=== PATIENT | female | born 1940 | race Hispanic/Latino ===

== ENCOUNTER 2016-08-26 12:30 | Emergency (ER) | payer MEDICARE ==
[2016-08-26 13:27] LABS: Hematocrit 38.8 % (37.0-47.0); Mean Corpuscular Hemoglobin 29.8 pg (27-31); Mean Corpuscular Hgb Conc 33.5 g/dl (32-36); Mean Platelet Volume 9.6 fl (6.0-9.5); Neutrophil # 4.3 K/mm3 (1.3-6.0); Neutrophil % 61.3 % (42-75.0); Platelet Count 306 K/mm3 (150-450); Red Blood Count 4.36 M/mm3 (4.2-5.4); Red Cell Distribution Width 12.7 % (11.5-14.0); White Blood Count 7.1 K/mm3 (4.0-10.5)
[2016-08-26 13:51] LABS: ALT 19 U/L (19-67); AST 8 U/L (0-48); Albumin * 3.6 gm/dl (3.4-5.0); Alkaline Phosphatase * 91 U/L (50-170); Anion Gap 15.6 mmol/L (6.8-13.8); BUN/Creatinine Ratio 21.1 (9.0-21.6); Bilirubin, Total 0.3 mg/dL (0.0-1.1); Blood Urea Nitrogen 28 mg/dL (3-23); Ca. Corrected For Albumin 9.4 mg/dL (8.4-10.2); Calcium * 9.4 mg/dL (7.9-10.9); Chloride 102 mmol/L (97-106); Glucose * 359 mg/dL (70-110); Lipase 211 U/L (73-393); Potassium 4.6 mmol/L (3.4-4.6); Sodium 139 mmol/L (132-142); Total Protein 7.8 gm/dL (6.2-8.2); Troponin I Less than 0.017 ng/ml (0.00-0.10)
--- OUTSIDE RECORDS SUMMARY | 2016-08-26 14:05 | XMS REPORT | Continuity of Care Document ---
:1940 Author Organization [facility] ([facility]) Address [address] [place] [address] Phone [phone] Care Team Providers Name Role Phone Radha Holland Primary Care Provider [phone] Source Comments This disclosure is being made pursuant to the Care Everywhere program, applicable federal and state laws, and may not contain all informaitonavailable regarding this patient.[facility] ([facility]) Active Allergies and Adverse Reactions Allergen Noted Date Severity Reactions Comments Ciprofloxacin 04/25/2010 Rash Mold 04/25/2010 Rash Nitrofurantoin Monohyd/M-Cryst 04/25/2010 Rash Penicillins 04/25/2010 Rash Prednisone 07/14/2016 Urticaria (Hives) Current Medications Prescription Sig. Disp. Refills Start Date End Date Status MULTIVITAMINS Take by mouth daily. Active W-MINERALS/LUT (CENTRUM SILVER PO) aspirin 81 mg EC Take 81 mg by mouth Active tablet daily. CALCIUM Take 1 Tab by mouth Active CARBONATE/VITAMIN daily. D3 (CALCIUM 600 + D PO) EPINEPHrine inject 0.3 mL 1 Each 2 10/06/2010 Active (EPI-PEN) 0.3 intramuscularly once mg/0.3 mL injection when needed. syringe Indications: Allergic Reactions glucose blood test 1 Strip 3 times 100 Strip 1 06/08/2011 Active strips (ACURA TEST daily. Indications: STRIPS) Diabetes Mellitus omeprazole 20 mg Take 1 Cap by mouth 90 Cap 0 06/13/2011 Active extended release daily. Indications: capsule Gastroesophageal Reflux atorvastatin 10 mg Take 10 mg by mouth Active tablet every evening. glimepiride 4 mg Take 4 mg by mouth 2 Active tablet times daily with meals. lisinopril 30 mg Take 30 mg by mouth Active tablet daily. metFORMIN Take 1,000 mg by Active (GLUMETZA) 500 mg mouth 2 times daily. XR tablet ondansetron 4 mg Take 4 mg by mouth Active disintegrating every 6 hours as tablet needed. HYDROcodone-acetami Take 1 tablet by Active nophen 5-325 mg per mouth every 6 hours. tablet 3 day script filled 06/15/16 metroNIDAZOLE 500 Take 1 tablet (500 mg 27 tablet 0 06/22/2016 Active mg tablet total) by mouth every 8 hours. docusate 100 mg Take 1 capsule (100 60 capsule 0 06/22/2016 Active capsule mg total) by mouth 2 times daily. Active Problems Problem Noted Date Abdominal pain, epigastric 06/18/2016 Diverticulitis 06/18/2016 Chronic urticaria 07/22/2010 Overview: -Symptoms initially started in 03/2010, and likely secondary to an acute hypersensitivity reaction to ciprofloxacin. Symptoms persisted despite discontinuation of antibiotic, and lasted >6wks. -During hospitalization in 04/2010 the allergy service was consulted for further evaluation and management of urticaria. Work up revealed: 04/27/2010 C3 133 mg/dl, C4 34, CH50 >60U/ml, thyroid agnieszka xidase Ab 19.2 IU/ml (elevated), thyroglobulin Ab <1.8 IU/mL, normal TSH, EDDIE < 1:40, hep B core Ab G+M NR, hep C Ab NR, elevated ESR 28 and CRP 6. Her symptoms resolved with hydroxyzine 25mg po q6h, cetirizine 10mg po bid, and famotidine 20mg po bid. -10/08/2010: TSH 1.36, free thyroxine 1.06, thyroid peroxidase Ab elevated at 31.9 -L upper thigh skin biopsy 01/24/2011: Superficial and deep perivascular lymphocytic inflammation with admixed eosinophils. The features are consistent with a hypersensitivity reaction such as an arthropod assault.Treated with Lidex ointment. Hypertrophic obstructive cardiomyopathy 07/22/2010 Diabetes mellitus, type 2 07/22/2010 Hyperlipemia 04/30/2010 Obstructive sleep apnea 04/25/2010 Hypertension 04/25/2010 GERD (gastroesophageal reflux disease) 04/25/2010 Osteoporosis 04/25/2010 Most Recent Encounters Date Type Specialty Providers Description 08/24/2016 Office Visit Med GI/Hepatology Ace, Subj: Upcoming MD Summer Appt Reminder 08/17/2016 Telephone Med GI/Hepatology Shalonda Cohen Chief Comp: Appointment Info 08/04/2016 Telephone Med GI/Hepatology Drea Haas Chief Comp: Appointment Info 07/15/2016 Nurse Triage Med GI/Hepatology Mónica Kimbrough, Chief Comp: RN Post-op Follow-up Call 07/14/2016 [facility] Med GI/Hepatology Jess Link, Dx: Abdominal Encounter pain, epigastric 06/22/2016 Office Visit Obg Urogynecology Ajith Lanier MD Subj: Upcoming Appt Reminder 06/22/2016 [facility]: [facility] 06/22/2016 Encounter Inpatient - Adult Sistla, tanisha, epigastric MD Cisco (Primary Dx) Joshua Hanna MD Malkhasyan, Karen A, MD Immunizations Name Dates Previously Given Next Due Influenza, PF 04/15/2011 Influenza, high dose 05/07/2010 Pneumococcal, unspecified 07/17/2007 Social History Tobacco Use Types Packs/Day Years Used Date Never Smoker Smokeless Tobacco: Never Used Comments:None Alcohol Use Drinks/Week oz/Week Comments No Last Filed Vital Signs Vital Sign Reading Time Taken Blood Pressure 126/73 07/14/2016 11:22 AM COMPONENT INSPECTOR Pulse 75 06/22/2016 4:34 PM COMPONENT INSPECTOR Temperature 35.7 C (96.3 F) 07/14/2016 11:02 AM COMPONENT INSPECTOR Respiratory Rate 20 07/14/2016 11:22 AM COMPONENT INSPECTOR Height 1.549 m (5' 0.98") 06/22/2016 4:34 PM COMPONENT INSPECTOR Weight 71 kg (156 lb 8.4 oz) 07/14/2016 9:36 AM COMPONENT INSPECTOR Body Mass Index 29.59 07/14/2016 9:36 AM COMPONENT INSPECTOR Oxygen Saturation 95% 07/14/2016 11:22 AM COMPONENT INSPECTOR Plan of Care Date Type Specialty Providers Description 09/06/2016 Appointment Med GI/Hepatology Ace, Subj: Appointment MD Summer Scheduled [address] [place] [address] [phone] (Fax) Health Maintenance Due Date Last Done Comments Hepatitis B Vaccine (1 of 3 - 1940 Primary Series) Tdap Vaccine 09/25/1950 DIABETIC: Microalbumin 09/25/1957 Td Vaccine 09/25/1957 Colonoscopy 09/25/1989 Zoster Vaccine 1999 Osteoporosis Screening (DXA 09/25/2004 Bone Density) Pneumococcal Vaccine (1 of 2 09/25/2004 - PCV13) DIABETIC: Foot Exam 12/28/2010 DIABETIC: Retinal Eye Exam 12/28/2010 Mammogram 06/08/2011 06/08/2010 DIABETIC: Hemoglobin A1C 06/15/2011 12/14/2010, Additional history exists 07/30/2010, 05/13/2010 DIABETIC: Cholesterol 12/15/2011 12/14/2010, 07/30/2010 Diabetic: Hdl 12/15/2011 12/14/2010, 07/30/2010 Diabetic: Ldl 12/15/2011 12/14/2010, 07/30/2010 DIABETIC: Triglycerides 12/15/2011 12/14/2010, 07/30/2010 Influenza Vaccine: Seasonal 02/15/2016 04/15/2011, (#1) 05/07/2010 Results from Last 3 Months ENDOSCOPIC ULTRASOUND UPPER (07/14/2016 11:26 AM) Jess Ng MD 07/14/2016 11:26 AM ENDOSCOPIC ULTRASOUND UPPER Procedure Date: 07/14/2016 Patient Name: Rosario Johnson Attending MD: Jess Link MD Procedure: Upper EUS Indications:Pancreatic cyst on MRI Providers:Jess Link MD (Doctor), Mohamud Bond MD (Fellow) Complications: No immediate complications Procedure: After obtaining informed consent, the endoscope was passed under direct vision.Throughout the procedure, the patient's blood pressure, pulse, and oxygen saturations were monitored continuously.The [id number] linear echoendoscope was introduced through the mouth, and advanced to the third part of duodenum.The upper EUS was accomplished without difficulty. The patient tolerated the procedure well. Findings: A microcystic/multicystic lesion (honeycomb appearance) was identified in the pancreatic body.The lesion measured 21 mm by 17 mm in maximal cross-sectional diameter. There was no associated solid mass. Fatty infiltration of the pancreas - ortherwise normal pancreas. Impression: - A 21 by 17 mm cystic lesion was seen in the pancreatic body. Tissue has not been obtained.However, the endosonographic appearance is highly suspicious for a serous cystadenoma. Thus, the risk of malignant transformation is neclegtibly low. Recommedation Consider surveillance with cross-sectional imaging in one year. Teaching statement: I, Dr. Jess Link, was present for the entire procedure. Jess Link MD Clinical Professor Department of Internal Medicine Division of Gastroenterology-Hepatology Post Sedation Evaluation Blood pressure: 126/73 (07/14/16 11:22 AM) Pulse: 69 (07/14/16 10:59 AM) 69 (07/14/16 11:22 AM) Temperature: 96.3 (07/14/16 11:02 AM) Temp. Source: Tympanic Respiratory rate: 19 (07/14/16 10:59 AM) SpO2: 95 (07/14/16 11:22 AM) Pain: None Nausea and Vomiting: No Level of Consciousness: Awake and alert Airway Patency: Patent I have personally evaluated the patient prior to discharge. Jess Link MD BLOOD GLUCOSE, BEDSIDE (06/22/2016 1:48 PM)Only the most recent of13 resultswithin the time period is included. Component Value Range Glucose, Accu-Chek 103(H) 65-99 mg/dL Specimen Blood, capillary BASIC METABOLIC PANEL W/ CALCIUM (CHEM 8) (06/22/2016 11:47 AM)Only the most recent of3 resultswithin the time period is included. Component Value Range Sodium 141 135-145 mEq/L Potassium 3.5 3.5-5.0 mEq/L Chloride 105 95-107 mEq/L CO2 22 22-29 mEq/L Anion Gap 14 8-18 mEq/L BUN 13 10-20 mg/dL Creatinine 1.1(H)Comment: 0.5-1.0 mg/dL Creatinine switched to enzymatic method on 11/23/2010.GFR equation switched to IDMS-traceable MDRD equation on 11/23/2010. Calculated GFR values are not valid in clinical settings where serum creatinine is changing. Glucose 149(H)Comment: 65-99 mg/dL The Expert Committee on the Diagnosis and Classification of Diabetes has defined impaired fasting glucose as greater than or equal to 100 mg/dL but less than 126 mg/dL.(Diabetes Care 28 (Suppl 1)S41,2005) Calcium 8.4(L) 8.5-10.5 mg/dL Calculated GFR 48(L) >60 mL/min/1.73 m2 Specimen Blood CBC (COMPLETE BLOOD COUNT) (06/22/2016 11:47 AM)Only the most recent of3 resultswithin the time period is included. Component Value Range WBC Count 7.3 3.7-10.5 K/MM3 RBC Count 4.12 4.00-5.20 M/MM3 Hemoglobin 11.7(L) 11.9-15.5 g/dL Hematocrit 36 35-47 % MCV (Mean Corpuscular Volume) 88 82-99 FL MCH (Mean Corpuscular Hemoglobin) 28 25-35 PG MCHC (Mean Corpuscular Hemoglobin Concentration) 32 32-36 % Platelet Count 291 150-400 K/MM3 MPV (Mean Platelet Volume) 9.6 9.4-12.3 FL RBC Dist Width-STD 40.8 36.4-46.3 FL RBC Distrib Width 12.8 9.0-14.5 % Nucleated RBC 0 /100 WBC Specimen Whole Blood ENDOSCOPY UPPER (06/22/2016 11:28 AM) Sin Davis MD 06/22/2016 11:28 AM ENDOSCOPY UPPER Esophagogastroduodenoscopy (EGD) procedure note Procedure Date: 06/22/2016 Procedure: Esophagogastroduodenoscopy (EGD) Indications: N/V Attending Staff: Clarita Venegas MD Fellow: Presley Marinelli D.O. Referring Physician: Radha Holland DO MD Consent: The risks, benefits, indications, potential complications, and alternatives were explained to the patient and informed consent obtained. Procedural Medications: Oxygen 2L by nasal cannulae, oral lidocaine, Versed 3 mg IV, fentanyl 50 mcg IV Description of Procedure: Time out was performed.The patient was placed in the left lateral decubitus position. The patient was monitored continuously withpulse oximetry, blood pressure monitoring, and direct observations. The oropharynx was clear.A bite block was placed.Lidocaine 4% oropharyngeal spray was given.Adequate IV sedation was administered as above. The Olympus gastroscope [id number] was inserted into the mouth and advanced under direct vision to third portion of the duodenum.A careful inspection was made as the gastroscope was withdrawn, including a retroflexed view of the proximal stomach; findings and interventions are described below. Photographs: Appropriate photodocumentation was obtained. Biopsy/Specimens: none Findings: Esophagus: Z-line at 34 cm and regular.No varices, no esophagitis. Stomach: insufflated normally, normal rugal folds.No abnormalities noted, including retroflexed views of the fundus and cardia.Pylorus patent. There was an inflammatory polyp in the pyloris ~4 mm. Duodenum was explored to D3 without abnormalities. Complications: The patient did tolerate the procedure well and no complications were noted. Impression: 1) No significant abnormalities found to explain patient symptoms 2) A small "Inflammatory-type looking" polyp in the antrum that was not removed. Plan: 1) Please see my last consult note. Symptomatic management of patients symptoms with discussed diet. Ok to advance diet as indicated in note. Patient has follow up appointment. We will not be doing any further diagnostic management unless clinical picture changes. We will sign off for now and please have patient follow up with already scheduled appointment. Her breath testing was ordered as well. Make sure she sees a store administrative assistant prior to discharge. Signature Presley Marinelli D.O. Fellow [facility] Department of Gastroenterology and Hepatology Teaching Statement: Dr. Morin present for the entire procedure. Sin Simmons MD FECAL OCCULT BLOOD - GUAIAC (06/21/2016 11:00 PM) Component Value Range Fecal Occult Blood Screen Negative Negative Card Type Hemoccult Specimen Stool C. DIFFICILE TOXIN SCREEN (06/21/2016 11:00 PM) Component Value Range C. Difficle GDH Negative Negative C. Difficile Toxin NegativeComment: Negative Negative for the presence of C. difficile and C. difficile toxin. Specimen Stool NUC GASTRIC EMPTYING-SOLID ([id number]) (06/21/2016 12:55 PM) Impressions Impression: Normal solid phase gastric emptying. Narrative Procedure: NUC GASTRIC EMPTYING-SOLID ([id number]) Indication: Nausea/vomiting. Radiopharmaceutical: Technetium-99m (Tc-99m) labeled sulfur colloid 1.1 mCi PO. Technique: Standardized meal was partly ingested, consisting of one of two scrambled eggs containing radiopharmaceutical, 60% of one slice of buttered toast, and 30 mL of 120 ml water over the course of 8 min. Anterior and posterior images of the abdomen were obtained at multiple time points over the course of 2 hrs. Regions of interest were drawn around the stomach to quantify clearance of activity over time by geometric mean analysis. Findings: Initial images show activity within the stomach. Subsequent images show gradual transit of activity into the small bowel activity over the acquisition interval. Based on the time-activity curve, the gastric emptying half-time is 80 min (normally 45-120 min) with 1% activity remaining in the stomach at 2 hrs (normally 60% or less) Procedure Note Jaquan, Incoming Imaging Results - MonJun 22, 2016 9:04 AM COMPONENT INSPECTOR Procedure: NUC GASTRIC EMPTYING-SOLID ([id number]) Indication: Nausea/vomiting. Radiopharmaceutical: Technetium-99m (Tc-99m) labeled sulfur colloid 1.1 mCi PO. Technique: Standardized meal was partly ingested, consisting of one of two scrambled eggs containing radiopharmaceutical, 60% of one slice of buttered toast, and 30 mL of 120 ml water over the course of 8 min. Anterior and posterior images of the abdomen were obtained at multiple time points over the course of 2 hrs. Regions of interest were drawn around the stomach to quantify clearance of activity over time by geometric mean analysis. Findings: Initial images show activity within the stomach. Subsequent images show gradual transit of activity into the small bowel activity over the acquisition interval. Based on the time-activity curve, the gastric emptying half-time is 80 min (normally 45-120 min) with 1% activity remaining in the stomach at 2 hrs (normally 60% or less) IMPRESSION Impression: Normal solid phase gastric emptying. DIFFERENTIAL (06/21/2016 6:05 AM)Only the most recent of2 resultswithin the time period is included. Component Value Range % Neutrophils-Auto Diff 42.1 % Neutrophils-Auto Diff 2120(L) 8594-4197 /MM3 % Lymphocytes-Auto Diff 46.6 % Lymphocytes-Auto Diff 2350 875-3300 /MM3 % Monocytes-Auto Diff 9.5 % Monocytes-Auto Diff 480 130-860 /MM3 % Eosinophils-Auto Diff 1.2 % Eosinophils-Auto Diff 60 40-390 /MM3 % Basophils 0.4 % Basophils-Auto Diff 20 10-136 /MM3 % Immature Granulocytes-Auto Diff 0.2 % Immature Granulocytes-Auto Diff 10 /MM3 Specimen Whole Blood Narrative This sample was misidentified by the patient care area. Nandini Rodriguez was notified @ 0617 06/21/16. Clarita Venegas MD, CLP# [id number] authorized Nandini Rodriguez to reconcile the error and accept responsibility for the identity of the sample. CBC (COMPLETE BLOOD COUNT) (06/21/2016 6:05 AM)Only the most recent of2 resultswithin the time period is included. Component Value Range WBC Count 5.0 3.7-10.5 K/MM3 RBC Count 4.04 4.00-5.20 M/MM3 Hemoglobin 11.6(L) 11.9-15.5 g/dL Hematocrit 36 35-47 % MCV (Mean Corpuscular Volume) 88 82-99 FL MCH (Mean Corpuscular Hemoglobin) 29 25-35 PG MCHC (Mean Corpuscular Hemoglobin Concentration) 33 32-36 % Platelet Count 288 150-400 K/MM3 MPV (Mean Platelet Volume) 9.8 9.4-12.3 FL RBC Dist Width-STD 41.3 36.4-46.3 FL RBC Distrib Width 12.8 9.0-14.5 % Nucleated RBC 0 /100 WBC Specimen Whole Blood Narrative This sample was misidentified by the patient care area. Nandini Rodriguez was notified @ 0632 06/21/16. Clarita Venegas MD, CLP# [id number] authorized Nandini Rodriguez to reconcile the error and accept responsibility for the identity of the sample. CBC WITH DIFFERENTIAL (06/21/2016 6:05 AM)Only the most recent of2 resultswithin the time period is included. Specimen Whole Blood Narrative The following orders were created for panel order CBC WITH DIFFERENTIAL. Procedure Abnormality Status --------- ------ CBC (COMPLETE BLOOD COUNT)[[id number]] Abnormal Edited Result - FINAL DIFFERENTIAL[[id number]] AbnormalEdited Result - FINAL Please view results for these tests on the individual orders. URINE CULTURE, REFLEXED (06/20/2016 2:20 PM) Component Value Range Quantitative Culture No growth at 07/999 dilution Specimen Culture - Urine, Midstream clean catch MICROSCOPIC URINALYSIS (06/20/2016 2:19 PM) Component Value Range White Blood Cells, Urine <1 0-5 /HPF Red Blood Cells, Urine <1 0-2 /HPF Squamous Epithelial Cells, Urine 20(H) <=10 /LPF Specimen Urine URINALYSIS WITH REFLEX CULTURE (06/20/2016 2:19 PM) Component Value Range Color, Urine Yellow Straw, Pale Yellow, Yellow, Clear, None Clarity, Urine Clear Clear pH, Urine 6.0 <9.0 Spec [place], Urine 1.015 1.000-1.030 Glucose, Urine Negative Negative Blood, Urine Negative Negative Ketones, Urine Negative Negative Protein, Urine 1+(A) Negative Urobilinogen, Urine Normal Normal Bilirubin, Urine Negative Negative Leukocyte Esterase, Urine 1+(A) Negative Nitrite, Urine Negative Negative Specimen Urine URINALYSIS WITH REFLEXED CULTURE AND MICROSCOPIC EXAM (06/20/2016 2:19 PM) Specimen Culture - Urine, Midstream clean catch Narrative The following orders were created for panel order URINALYSIS WITH REFLEXED CULTURE AND MICROSCOPIC EXAM. Procedure Abnormality Status --------- ------ URINALYSIS WITH REFLEX C...[[id number]]AbnormalFinal result MICROSCOPIC URINALYSIS[[id number]] Abnormal Final result URINE CULTURE, REFLEXED[[id number]]Normal Final result Please view results for these tests on the individual orders. C-REACTIVE PROTEIN (06/20/2016 12:14 PM) Component Value Range CRP (C-Reactive Protein) 0.7(H) <=0.5 mg/dL Specimen Blood ERYTHROCYTE SEDIMENTATION RATE (06/20/2016 12:14 PM) Component Value Range ESR (Erythrocyte Sedimentation Rate) 22(H) 0-20 mm/Hr Specimen Whole Blood MRI MRCP AND MRI ABD W/WO CONTRAST ([id number]) (06/19/2016 3:24 PM) Impressions Impression: 1. The lesion seen on CT posterior to junction of pancreatic body and tail is cystic and septated, favor serous cystadenoma, less likely side branch IPMN. This can be correlated with EUS and aspiration. 2. A smaller cystic lesion at junction of pancreatic body and tail appears to communicate with main pancreatic duct, favor sidebranch IPMN. 3. 2 small hemorrhagic cysts in the left kidney. 4. Mild bile duct dilatation without distal obstructing stones or masses, could be due to prior cholecystectomy. Narrative Procedure: MRI MRCP AND MRI ABD W/WO CONTRAST ([id number]) Clinical Indication: Abdominal pain, pancreatic mass. Technique: MRI of the abdomen with attention to the pancreas and MRCP were performed on a 1.5 Ashley scanner using a surface multicoil. Imaging consisted of 3 plane TrueFISP localizer, coronal HASTE T2 localizer, axial T1 FLASH in- and [id number], axial T2 fat-sat CHERISE, axial T2* GRE, axial and coronal fat-sat T2 HASTE 2D MRCP, radial thick slab heavy T2 MRCP, coronal T2 3D SPACE MRCP, axial diffusion weighted imaging, axial thin slice fat-sat T1 FLASH, and pre-contrast and multiphase post-contrast axial fat-sat T1 3D VIBE. Imaging was performed before and after administration of IV Gadavist. 8 ml of IV contrast was administered. Comparison:External CT dated 06/15/2016. Findings: Lower chest: Normal Liver: Normal size at 16.7 cm craniocaudal. Bile ducts: Extrahepatic bile ducts are mildly dilated to maximum diameter of 10 mm. Minimal dilatation of central intrahepatic bile ducts. No distal obstructing stones or masses. Gallbladder: Surgically absent. Low insertion of cystic duct remnant on common bile duct. Pancreas: Fatty atrophy of pancreas, especially neck and head. 2.3 x 1.9 x 1.9 cm lobulated cystic lesion posterior and superior to junction of pancreatic body and tail. The lesion has multiple thin, weakly enhancing internal septations and may have a central scar. The lesion does not restrict diffusion and does not definitely communicate with the main pancreatic duct. Anterior and inferior to this lesion is an 8 mm cystic lesion which appears to communicate with the main pancreatic duct. Main pancreatic duct is nondilated. Spleen: Normal Adrenal glands: Normal Kidneys: 6 mm hemorrhagic cyst in posterior midpole of left kidney. 11 mm hemorrhagic cyst in anterior midpole of left kidney. Ureters: Normal Aorta: Normal Retroperitoneum: No lymphadenopathy. Peritoneum: No ascites. Mesentery: Normal Stomach: Not distended. Bowel: Not distended. Abdominal wall: Normal. Bones: Normal. Procedure Note Jaquan, Incoming Imaging Results - [place] Jun 19, 2016 8:40 PM COMPONENT INSPECTOR Procedure: MRI MRCP AND MRI ABD W/WO CONTRAST ([id number]) Clinical Indication: Abdominal pain, pancreatic mass. Technique: MRI of the abdomen with attention to the pancreas and MRCP were performed on a 1.5 Ashley scanner using a surface multicoil. Imaging consisted of 3 plane TrueFISP localizer, coronal HASTE T2 localizer, axial T1 FLASH in- and [id number], axial T2 fat-sat CHERISE, axial T2* GRE, axial and coronal fat-sat T2 HASTE 2D MRCP, radial thick slab heavy T2 MRCP, coronal T2 3D SPACE MRCP, axial diffusion weighted imaging, axial thin slice fat-sat T1 FLASH, and pre-contrast and multiphase post-contrast axial fat-sat T1 3D VIBE. Imaging was performed before and after administration of IV Gadavist. 8 ml of IV contrast was administered. Comparison: External CT dated 06/15/2016. Findings: Lower chest: Normal Liver: Normal size at 16.7 cm craniocaudal. Bile ducts: Extrahepatic bile ducts are mildly dilated to maximum diameter of 10 mm. Minimal dilatation of central intrahepatic bile ducts. No distal obstructing stones or masses. Gallbladder: Surgically absent. Low insertion of cystic duct remnant on common bile duct. Pancreas: Fatty atrophy of pancreas, especially neck and head. 2.3 x 1.9 x 1.9 cm lobulated cystic lesion posterior and superior to junction of pancreatic body and tail. The lesion has multiple thin, weakly enhancing internal septations and may have a central scar. The lesion does not restrict diffusion and does not definitely communicate with the main pancreatic duct. Anterior and inferior to this lesion is an 8 mm cystic lesion which appears to communicate with the main pancreatic duct. Main pancreatic duct is nondilated. Spleen: Normal Adrenal glands: Normal Kidneys: 6 mm hemorrhagic cyst in posterior midpole of left kidney. 11 mm hemorrhagic cyst in anterior midpole of left kidney. Ureters: Normal Aorta: Normal Retroperitoneum: No lymphadenopathy. Peritoneum: No ascites. Mesentery: Normal Stomach: Not distended. Bowel: Not distended. Abdominal wall: Normal. Bones: Normal. IMPRESSION Impression: 1. The lesion seen on CT posterior to junction of pancreatic body and tail is cystic and septated, favor serous cystadenoma, less likely side branch IPMN. This can be correlated with EUS and aspiration. 2. A smaller cystic lesion at junction of pancreatic body and tail appears to communicate with main pancreatic duct, favor sidebranch IPMN. 3. 2 small hemorrhagic cysts in the left kidney. 4. Mild bile duct dilatation without distal obstructing stones or masses, could be due to prior cholecystectomy. EXTERNAL CT-STORE& INTERPRET (06/19/2016 6:20 AM) Impressions Impression: 1. Colonic diverticulosis. Uncomplicated sigmoid diverticulitis. 2. Enlarging mass posterior to pancreatic body/tail, concerning for neoplasm. No pancreatic ductal dilatation. Consider endoscopic ultrasound with biopsy or pancreatic protocol MRI or CT for further evaluation. 3. Mild extrahepatic bile duct dilatation, could be due to prior cholecystectomy. 4. Small hypodense lesion at anterior midpole of left kidney, not a simple cyst, could be a hemorrhagic or proteinaceous cyst. Solid neoplasm is less likely due to mild decrease in size over 5 years. Consider ultrasound for further evaluation. These findings are known to the clinical team at the time of this dictation. This final report is in agreement with the critical and emergent preliminary findings reported by the executive vice president business development contracts paralegal. Narrative Outside film interpretation requested. Patient name: Rosario Johnson. Exam was performed at 2200 hours on 06/15/2016 at [facility]. 220 images are provided and interpreted on the in-house PACS. Procedure: CT exam of the abdomen and pelvis with IV contrast. Technique: Exam consists of axial venous phase abdomen and axial delayed phase abdomen and pelvis with coronal reformats. Clinical Indication: Abdominal pain, persistent. ?Pancreatic mass seen on imaging per patient report. Additional history per Epic: DM2, recurrent diverticulitis, HOCM, status post cholecystectomy, vaginal hysterectomy, cystocele repair/sling operation. Comparison: CT dated 03/03/2011. Findings: Lower chest: The visualized lung bases are clear. Fatty interatrial septum. Liver: Normal Bile ducts: Mildly prominent extrahepatic bile ducts measure up to 10 mm in diameter; no distal obstructing stone or mass. Gallbladder: Surgically absent Pancreas: Moderate to severe fatty atrophy, most pronounced in the neck and head. There is a round 2.1 cm mass posterior to the junction of pancreatic body and tail (3-53, 6-48). Lesion density is 57 Hounsfield units on the venous phase and 37 Hounsfield units on the delayed phase. The lesion was probably present on the prior study, when measured 1.4 cm. No pancreatic ductal dilatation. The mass is separate from the left adrenal gland. Spleen: Normal Adrenal glands: Normal Kidneys: 1 cm hypodense lesion in anterior midpole of left kidney, not a simple cyst. Lesion has decreased in size from 1.3 cm previously. Otherwise, kidneys are normal. Ureters: Normal Bladder: Normal Aorta: Scattered calcifications, nonaneurysmal Retroperitoneum: No lymphadenopathy. Peritoneum: No ascites. No pneumoperitoneum. Mesentery: Normal Stomach: Not distended. Small bowel: Not distended. Colon: Not distended. There is colonic diverticulosis, most pronounced at sigmoid colon. Wall thickening is noted at mid sigmoid colon with pericolonic fat stranding suggestive of diverticulitis. No focal collection to suggest abscesses or extraluminal air. Appendix: Normal. Extraperitoneal pelvis: No lymphadenopathy. Uterus: Surgically absent Ovaries: No adnexal mass Abdominal wall: Normal Bones: Limited evaluation due to lack of sagittal reformats. There are degenerative changes in spine with dextroconvex lumbar curvature. No obvious acute fracture or destructive bony lesion. Procedure Note Jaquan, Incoming Imaging Results - Sun Jun 19, 2016 11:33 AM COMPONENT INSPECTOR Outside film interpretation requested. Patient name: Rosario Johnson. Exam was performed at 2200 hours on 06/15/2016 at [facility]. 220 images are provided and interpreted on the in-house PACS. Procedure: CT exam of the abdomen and pelvis with IV contrast. Technique: Exam consists of axial venous phase abdomen and axial delayed phase abdomen and pelvis with coronal reformats. Clinical Indication: Abdominal pain, persistent. ?Pancreatic mass seen on imaging per patient report. Additional history per Epic: DM2, recurrent diverticulitis, HOCM, status post cholecystectomy, vaginal hysterectomy, cystocele repair/sling operation. Comparison: CT dated 03/03/2011. Findings: Lower chest: The visualized lung bases are clear. Fatty interatrial septum. Liver: Normal Bile ducts: Mildly prominent extrahepatic bile ducts measure up to 10 mm in diameter; no distal obstructing stone or mass. Gallbladder: Surgically absent Pancreas: Moderate to severe fatty atrophy, most pronounced in the neck and head. There is a round 2.1 cm mass posterior to the junction of pancreatic body and tail (3-53, 6-48). Lesion density is 57 Hounsfield units on the venous phase and 37 Hounsfield units on the delayed phase. The lesion was probably present on the prior study, when measured 1.4 cm. No pancreatic ductal dilatation. The mass is separate from the left adrenal gland. Spleen: Normal Adrenal glands: Normal Kidneys: 1 cm hypodense lesion in anterior midpole of left kidney, not a simple cyst. Lesion has decreased in size from 1.3 cm previously. Otherwise, kidneys are normal. Ureters: Normal Bladder: Normal Aorta: Scattered calcifications, nonaneurysmal Retroperitoneum: No lymphadenopathy. Peritoneum: No ascites. No pneumoperitoneum. Mesentery: Normal Stomach: Not distended. Small bowel: Not distended. Colon: Not distended. There is colonic diverticulosis, most pronounced at sigmoid colon. Wall thickening is noted at mid sigmoid colon with pericolonic fat stranding suggestive of diverticulitis. No focal collection to suggest abscesses or extraluminal air. Appendix: Normal. Extraperitoneal pelvis: No lymphadenopathy. Uterus: Surgically absent Ovaries: No adnexal mass Abdominal wall: Normal Bones: Limited evaluation due to lack of sagittal reformats. There are degenerative changes in spine with dextroconvex lumbar curvature. No obvious acute fracture or destructive bony lesion. IMPRESSION Impression: 1. Colonic diverticulosis. Uncomplicated sigmoid diverticulitis. 2. Enlarging mass posterior to pancreatic body/tail, concerning for neoplasm. No pancreatic ductal dilatation. Consider endoscopic ultrasound with biopsy or pancreatic protocol MRI or CT for further evaluation. 3. Mild extrahepatic bile duct dilatation, could be due to prior cholecystectomy. 4. Small hypodense lesion at anterior midpole of left kidney, not a simple cyst, could be a hemorrhagic or proteinaceous cyst. Solid neoplasm is less likely due to mild decrease in size over 5 years. Consider ultrasound for further evaluation. These findings are known to the clinical team at the time of this dictation. This final report is in agreement with the critical and emergent preliminary findings reported by the executive vice president business development contracts paralegal. PT/INR (PROTHROMBIN TIME/INR) VENOUS (06/19/2016 5:14 AM) Component Value Range PT (Prothrombin Time) 11 9-12 secs INR 1.0 <4.0 Specimen Blood CHEM 7 PANEL (06/19/2016 5:14 AM) Component Value Range Sodium 138 135-145 mEq/L Chloride 102 95-107 mEq/L Potassium 4.3 3.5-5.0 mEq/L CO2 22 22-29 mEq/L BUN 26(H) 10-20 mg/dL Creatinine 1.2(H)Comment: 0.5-1.0 mg/dL Creatinine switched to enzymatic method on 11/23/2010.GFR equation switched to IDMS-traceable MDRD equation on 11/23/2010. Calculated GFR values are not valid in clinical settings where serum creatinine is changing. Glucose 205(H)Comment: 65-99 mg/dL The Expert Committee on the Diagnosis and Classification of Diabetes has defined impaired fasting glucose as greater than or equal to 100 mg/dL but less than 126 mg/dL.(Diabetes Care 28 (Suppl 1)S41,2005) Anion Gap 14 8-18 mEq/L Calculated GFR 44(L) >60 mL/min/1.73 m2 Specimen Blood LIPASE (06/18/2016 4:47 PM) Component Value Range Lipase 40 13-60 U/L Specimen Blood HEPATIC FUNCTION PANEL (06/18/2016 4:47 PM) Component Value Range Albumin 3.6 3.4-4.8 g/dL ALP 87 35-104 U/L Bilirubin Total 0.2 <=1.2 mg/dL Bilirubin, Direct <0.2 0.0-0.2 mg/dL AST 14 0-32 U/L ALT 17 0-33 U/L Total Protein 6.9 6.0-8.0 g/dL Specimen Blood
[2016-08-26 14:18] VITALS: BP 137/72
[2016-08-26 15:36] LABS: Urine Bilirubin Negative (NEGATIVE); Urine Ketone Negative (NEGATIVE); Urine Nitrite Negative (NEGATIVE); Urine Protein 100 mg/dL (NEGATIVE); Urine Specific Gravity >=1.030 SP.GR. (1.005-1.010); Urine Urobilinogen Normal (NORMAL)
[2016-08-26 15:46] LABS: Urine Appearance Slightly Cloudy; Urine Blood 10 /ul (NEGATIVE); Urine Color Yellow
[2016-08-26 15:47] LABS: Urine RBC TRACE /hpf (0-5); Urine WBC None Seen /hpf (0-5)
[2016-08-26 15:48] LABS: Urine Bacteria TRACE
--- NOTE | 2016-08-26 16:00 | ERNOTE ---
Medical Problem HPI - Narrative Date of Service: 08/26/16 - General Chief Complaint: Diabetes Related Problem Time Seen by Provider: 08/26/16 12:59 Source: patient Exam Limitations: no limitations - Immun/Allergies/Home Medications Immunizations: IMMUNIZATION HX Immunizations Up to Date Yes History of Influenza Vaccine No Hx Pneumococcal Vaccination Yes Allergies/Adverse Reactions: Allergies ciprofloxacin [From Cipro] Allergy (Verified 08/26/16 13:14) Vomiting ciprofloxacin HCl [From Cipro] Allergy (Verified 08/26/16 13:14) Vomiting mold Allergy (Verified 08/26/16 13:14) Anaphylaxis nitrofurantoin [From Macrobid] Allergy (Verified 08/26/16 13:14) Other nitrofurantoin macrocrystalline [From Macrobid] Allergy (Verified 08/26/16 13:14 ) Other Penicillins Allergy (Verified 08/26/16 13:14) Hives prednisone Allergy (Verified 08/26/16 13:14) Swelling (Other) Home Medications: HOME MEDICATIONS Aspirin [Aspirin EC] 81 mg PO DAILY 08/26/16 [Last Taken Unknown] Fluticasone Propionate [Flonase] 1 spray NS DAILY 08/26/16 [Last Taken Unknown] Hydrocodone/Acetaminophen [[place] 5-325 Tablet] 1 each PO HS 08/26/16 [Last Taken Unknown] Lisinopril [Zestril] 10 mg PO DAILY 08/26/16 [Last Taken Unknown] Lisinopril [Zestril] 20 mg PO DAILY 08/26/16 [Last Taken Unknown] Loratadine [Claritin] 10 mg PO DAILY 08/26/16 [Last Taken Unknown] Metformin HCl [Metformin HCl ER] 500 mg PO BID 08/26/16 [Last Taken Unknown] Multivitamin [One Daily Essential] 1 each PO DAILY 08/26/16 [Last Taken Unknown] Omeprazole 20 mg PO DAILY 08/26/16 [Last Taken Unknown] - History of Present History Narrative: Patient presents because "my blood sugar is high". She has a Hx of DM. She takes metformin. Her BS has been reading in the 300 range. She states with her BS high she is urinating more frequently and is concerned about UTI. She relates she gets frequent UTIs. She states he vision may be somewhat blurry at times. No CP or SOB. She gets occasional nausea but no abdominal pain. No acute N/T/W. Denies other Sx. Review of Systems - Review of Systems Constitutional: Absent: fever Respiratory: Absent: shortness of breath Cardiology: Absent: chest pain Gastrointestinal/Abdominal: Present: See HPI Genitourinary: Present: See HPI Skin: Absent: rash Endocrine: Present: See HPI - Patient's Past Medical History Patient History - Medical: Diabetes Type 2, Osteoarthritis, Osteoporosis, UTI'S , Other Patient History - Cardiac/Respiratory: Cardiomyopathy, Hypertension Patient History - Cancer: No Hx of Cancer Patient History - Surgical Procedures: Cholecystectomy, Hysterectomy Patient History - Other: None LMP (females 10-50): Menopausal - Social History Living Situations: home Abuse History: No History of abuse Psych History: No pertinent hx Smoking Status: Never smoker Alcohol Use: none Drug Use: none - Immunizations Immunizations Up to Date: Yes Hx Pneumococcal Vaccination: Yes History of Influenza Vaccine: No Physical Exam - Physical Exam General Appearance: Present: alert, no apparent distress, other - Sitting on the edge of the bed, no distress, non-toxic, well hydrated. Eye Exam: Normal inspection: bilateral, PERRL: bilateral Ears, Nose, Throat: Present: normal ENT inspection. Absent: dry mucous membranes Neck: Present: normal inspection Respiratory: Present: no respiratory distress, normal breath sounds, no accessory muscle use, lungs clear Cardiovascular/Chest: Present: regular rate, rhythm Gastrointestinal/Abdominal: Present: normal bowel sounds, nontender, soft, no organomegaly. Absent: tenderness Back Exam: Present: normal range of motion Extremity Exam: Present: normal inspection Neurological Exam: Present: alert, normal mood/affect, no motor/sensory deficits. Absent: facial droop, motor weakness Skin Exam: Absent: skin rash ED Progress - Results and Orders Patient's Lab Results:: I have reviewed the patient's lab results. - Vital Signs Patient's Vital Signs:: I have reviewed the patient's vital signs. Vital Signs: Vital Signs 08/26/16 08/26/16 12:45 14:17 Temperature 36.5 C Pulse Rate 95 90 Respiratory 16 16 Rate Blood Pressure 142/83 137/72 O2 Sat by Pulse 96 94 Oximetry - EKG EKG read: Interp. by me EKG Comments: Sinus tach rate 102. No evidence of acute infarct or ischemic pattern. - Progress/Reassessment Chief Complaint: Diabetes Related Problem Progress Note-Subjective: 08/26/16 15:[address] Holland who recommended increasing metformin to 1000 BID. SHe called this in. No DKA or HONKS. Stable, non-toxic, no distress, well hydrated. She is wishing to go home. No acute life threat found. No UTI. I discussed warning signs and reasons to return as well as the need for close f/u. \\ Departure - Departure Clinical Impression: Hyperglycemia Disposition: Home self-care Condition: Stable Instructions: Hyperglycemia, [id number] Additional Instructions: Please go to the pharmacy. Dr Holland has called in a new dose of Metformin for you. Take and record your blood sugars twice a day for the next [address] Holland Monday for an appointment. Return for pain, vomiting, weakness, increased blood sugars or if your condition worsens or changes in any way.
== END 2016-08-26 15:59 | disposition home or self-care (01) ==
LOC: ER 12:30
DX: E11.65 Type 2 diabetes mellitus with hyperglycemia (principal); I10 Essential (primary) hypertension

== ENCOUNTER 2016-11-14 05:43 | Inpatient (IN) | payer MEDICARE ==
--- OUTSIDE RECORDS SUMMARY | 2016-11-14 05:47 | XMS REPORT | Continuity of Care Document ---
:1940 Author Organization [facility] ([facility]) Address [address] [place] [address] Phone [phone] Care Team Providers Name Role Phone Radha Holland Primary Care Provider [phone] Source Comments This disclosure is being made pursuant to the Care Everywhere program, applicable federal and state laws, and may not contain all informaitonavailable regarding this patient.[facility] ([facility]) Active Allergies and Adverse Reactions Allergen Noted [...] Recent Encounters Date Type Specialty Providers Description 09/06/2016 Office Visit Med GI/Hepatology Ace, Subj: Appointment MD Summer Canceled 08/30/2016 Telephone Med GI/Hepatology Cinthya Mark Chief Comp: Appointment Info 08/24/2016 Office Visit Med GI/Hepatology Flaco Bello: Upcoming Jese Wheeler MD Reminder 08/17/2016 Telephone Med GI/Hepatology Shalonda Cohen Chief Comp: Appointment Info Immunizations Name Dates Previously Given Next Due Influenza, PF 04/15/2011 Influenza, high dose 05/07/2010 Pneumococcal, unspecified 07/17/2007 Social History Tobacco Use Types Packs/Day Years Used Date Never Smoker Smokeless Tobacco: Never Used Comments:None Alcohol Use Drinks/Week oz/Week Comments No Last Filed Vital Signs Vital Sign Reading Time Taken Blood Pressure 126/73 07/14/2016 11:22 AM AS400 ADMINISTRATOR Pulse 75 06/22/2016 4:34 PM AS400 ADMINISTRATOR Temperature 35.7 C (96.3 F) 07/14/2016 11:02 AM AS400 ADMINISTRATOR Respiratory Rate 20 07/14/2016 11:22 AM AS400 ADMINISTRATOR Height 1.549 m (5' 0.98") 06/22/2016 4:34 PM AS400 ADMINISTRATOR Weight 71 kg (156 lb 8.4 oz) 07/14/2016 9:36 AM AS400 ADMINISTRATOR Body Mass Index 29.59 07/14/2016 9:36 AM AS400 ADMINISTRATOR Oxygen Saturation 95% 07/14/2016 11:22 AM AS400 ADMINISTRATOR Plan of Care Health Maintenance Due Date Last Done Comments [...] (#1) 05/07/2010 Results from Last 3 Months Not on file
[2016-11-14] MEDS ORDERED: ROPIVACAINE HCL/PF 100 MG, EPINEPHrine 0.2 MG, KETOROLAC TROMETHAMINE 30 MG in NORMAL S... IJ PRN (06:00)
[2016-11-14] MEDS ORDERED: MORPHINE SULFATE 15 MG TABLET.SA PO PRN (06:00)
[2016-11-14] MEDS ORDERED: ceFAZolin SODIUM 1 GM VIAL IV PRN (06:00)
[2016-11-14] MEDS: RINGERS SOLUTION,LACTATED 1,000 ML IV PRN ×4 (06:24→20:26)
[2016-11-14] MEDS ORDERED: RINGERS SOLUTION,LACTATED 1,000 ML IV ONE ×2 (08:49→09:30)
[2016-11-14] MEDS: TRANEXAMIC ACID 1,000 MG in NORMAL SALINE 100 ML IV PRN ×2 (08:49→09:10)
[2016-11-14] MEDS ORDERED: PROMETHAZINE HCL 5 MG in DEXTROSE 5 % IN WATER 50 ML IV PRN ×2 (09:50)
[2016-11-14] MEDS ORDERED: MAG HYDROX/ALUMINUM HYD/SIMETH 30 ML UDC PO PRN (09:50)
[2016-11-14] MEDS ORDERED: MAGNESIUM HYDROXIDE 30 ML UDC PO PRN (09:50)
[2016-11-14] MEDS ORDERED: ZOLPIDEM TARTRATE 5 MG TABLET PO PRN (09:50)
[2016-11-14] MEDS ORDERED: ONDANSETRON HCL/PF 2 MG/ML VIAL IV PRN (09:50)
[2016-11-14] MEDS ORDERED: ACETAMINOPHEN 500 MG TABLET PO PRN (09:50)
[2016-11-14] MEDS ORDERED: HYDROmorphone HCL 1 MG/ML DISP.SYRIN IV PRN (09:50)
--- NOTE | 2016-11-14 09:55 | OR ---
Operative Report - Dictated Report Narrative: Date: 11/14/2016 Preoperative diagnosis: Right Knee degenerative joint disease. Postoperative diagnosis: Right Knee degenerative joint disease. Procedure: Right Total knee arthroplasty. Surgeon: George Li M.D. Windows Desktop Support: Kris Ly PA-C Anesthesia: Spinal with regional block and local periarticular joint injection. Complications: None Specimens: Bone for disposal. Estimated blood loss: Minimal. Tourniquet time: 80 Minutes at 325 millimeters of mercury. Retained implants: Depuy Attune size 4 right lugged cemented posterior stabilized femoral component. Size 4 fixed-bearing cemented tibial platform. 4 by 8 millimeter posterior stabilized cross-linked tibial insert. 35 millimeter medialized patella button. Indications: Mrs. Johnson is a 76-year-old female who has advanced knee arthrosis and pain. This patient was followed in my clinic for period of time with significant complaints of right knee pain consistent with arthritic changes. They had failed conservative measures including, but not limited to, activity modification, passage of time, medications, and other conservative measures. Patient wished to proceed with surgical treatment. The risks, benefits, and alternatives were discussed in clinic. The risks of , blood clots, bleeding, infection, nerve/tendon blood vessel/ injury, malposition of components, intraoperative fracture, postoperative limited range of motion, persistent pain, failure of components, and need for additional procedures. Patient wished to proceed consent was obtained after answering all questions. Procedure: After marking the correct extremity on the floor, the patient was taken to the operating room. A timeout was performed. IV antibiotics consisting of Ancef were administered prior to the procedure. A regional followed by spinal anesthetic was induced by anesthesia on the operative table with all bony prominences well-padded. Ayala catheter was placed, and a bump was placed under the operative side buttock. SCDs and CORKY hose were utilized on the nonoperative leg. A well-padded tourniquet was applied to the operative thigh. The operative leg was then pre-scrubbed with janett parmar prepped, and draped in a standard sterile fashion. After exsanguinating the extremity with an Esmarch bandage, the tourniquet was inflated. After marking out the anterior knee for standard incision centered over the patella, the skin was incised and dissected down to the joint retinaculum. The joint retinaculum was marked out as well as the horizontal axis of the patella, and a standard medial parapatellar arthrotomy was then made. The most proximal aspect of the quadriceps tendon and the patella tendon insertion were protected from release. A partial synovectomy was performed as well as a resection of the infrapatellar fat pad. The distal femoral fat pad proximal to the trochlea was also resected using cautery. The soft tissues were elevated off the medial aspect of the proximal tibia using a Barber elevator ensuring that we did not transect the medial collateral ligament. Upon initial evaluation range of motion was approximately 10 degrees to 120 degrees of flexion. There were signs of advanced arthrosis in the medial, lateral, and patellofemoral joint spaces. She is also noted to have significant gouty deposits and tophi. There were large marginal osteophytes which were removed with a rongeur. The knee was hyperflexed and the patella was tucked laterally. Protecting the surrounding soft tissues with Homans, an entry drill was placed down the femoral canal using Whitesides line for guidance into the entry point. The intramedullary femoral alignment jason was utilized in order to cut the distal femur in 5 degrees of valgus resecting 10 millimeters of bone. Next the distal femur was sized to a size 4. A posterior referencing guide was utilized to place the distal femoral cutting block in 3 degrees of external rotation. This was pinned into place. The rotation was confirmed both visually and based on anatomic landmarks. The 4 in 1 cutting jig of the appropriate size was utilized in order to make all bony cuts. The angle wing was used to ensure no notching. Retractors were utilized in order to protect surrounding soft tissues. This cut did not result in any excessive notching. We then cut the box centered over the distal femur. This allowed for resection of the anterior and posterior cruciate ligaments. I then turned my attention to the preparation of the tibia. Using an extra medullary tibial alignment jason, 3 millimeters of bone was resected off the medial articular surface. This was made perpendicular to the mechanical axis of the joint with the alignment jason centered over the ankle mortise. The alignment jason was checked and was noted to be parallel to the mechanical axis, centered over the medial one third of the tibial tubercle, paralleling the anterior surface of the tibia. We then turned our attention to the remaining meniscus and soft tissues. These were removed while protecting the surrounding ligaments and soft tissues. The marginal osteophytes off the anterior, posterior, medial, lateral aspects of the femur and tibia were removed. The tibia was sized out to a size 4. Next the tibia was drilled and punched in an externally rotated position. Next the trial femur and a series of tibial inserts were utilized in order to allow for full extension and maximal flexion. It was found that a 8 millimeter insert gave the best range of motion and stability at multiple flexion points as well as at full extension there was less than 2 mm of gapping both medially and laterally. There is minimal anterior translation with the knee at 90 degrees of flexion and no signs of being able to dislocate the knee. The patella was then prepared. The initial thickness was 20 millimeters. This was reamed down to 12 millimeters parallel to the anterior surface of the patella. It was sized out to a size 35 medialized patella button. This was then drilled and trialed. Without any medial restraint the patella tracked appropriately and did not sublux or dislocate. At this point, it was felt these were the appropriate sized implants, and all trials were removed. The standard periarticular joint injection consisting of ropivacaine, Toradol, and epinephrine were injected into the periarticular joint tissues. The bony surfaces were thoroughly irrigated with a pulsatile- suction saline irrigation device. A bone plug from the prior resected anterior chamfer cut was placed into the drill hole at the distal femur. The bony surfaces were then dried in preparation for placement of the implants. The cement was vacuum mixed per the continuous mining machine coal miner's instructions. The cement was placed on the dry bony surfaces and posterior aspect of the implants. The implants were impacted into place, removing all extruded cement. At this point anesthesia administered tranexamic acid per protocol intravenously. The knee was placed in extension with axial loading with the trial insert while the cement cured. Once the cement cured, all remaining extruded cement was removed. The knee was placed through a range of motion with the trial insert to ensure appropriate range of motion and stability. Final range of motion was approximately 0 to 120 degrees. The knee was again thoroughly irrigated with pulsatile saline lavage. The final polyethylene insert was then impacted into place ensuring no retained soft tissues. The remaining periarticular joint injection was injected. A medium Hemovac drain was placed exiting superior laterally. The knee was then placed over a triangle and the arthrotomy was closed with interrupted #1 Vicryl after thoroughly irrigating the joint. The deep and subcutaneous tissues were closed with interrupted oh and 3-0 Vicryl respectively. Skin was closed with a running subcutaneous 3-0 Monocryl and Prineo Dermabond dressing. 4 x 4's, ABD, Sof-Rol, and a full leg Binu wrap were applied. All sponge, needle, blade, and instrument counts were correct prior to closing the wounds. Postoperative condition: The patient was awoken and transferred to the postanesthesia care unit in stable condition. Plan is to be admitted to the inpatient medical/surgical floor postoperatively for 24 hours of IV antibiotics , physical therapy, occupational therapy, and medical comanagement. Patient will be weightbearing as tolerated with range of motion as tolerated. DVT prophylaxis will be with SCDs, CORKY hose, and pharmacological anticoagulation. Anticipated hospital stay is approximately 2-4 days.
[2016-11-14] MEDS ORDERED: NALOXONE HCL 1 MG/1 ML SYRG IV PRN ×2 (10:08)
[2016-11-14] MEDS: KETOROLAC TROMETHAMINE 15 MG/ML VIAL IV SCH ×3 (11:50→23:32)
[2016-11-14] MEDS: ceFAZolin SODIUM 1 GM in DEXTROSE 5 % IN WATER 100 ML IV SCH ×6 (11:53→23:32)
[2016-11-14] MEDS: oxyCODONE HCL/ACETAMINOPHEN 1 TAB TABLET PO PRN (19:22)
[2016-11-14] MEDS: diphenhydrAMINE HCL 50 MG/ML VIAL IV PRN ×2 (19:23→23:31)
--- NOTE | 2016-11-14 19:40 | PN ---
Subjective - Date and Time Seen Date: 11/14/16 Time: 19:38 Subjective Narrative: patient was seen today AOX3, she denies discomfort no calf pain, shortness of breath and drainage remains to suction. Pt anticipating discharge to SNF Objective - Review of Systems Generalized/Overall Review: Reports: No Symptoms Reported EENTM: Reports: No Symptoms Reported Respiratory: Reports: No Symptoms Reported Cardiac: Reports: No Symptoms Reported Abdominal: Reports: No Symptoms Reported Genitourinary Symptoms: Reports: No Symptoms Reported Musculoskeletal Complaints: Reports: No Symptoms Reported Neurological: Reports: No Symptoms Reported Skin: Reports: No Symptoms Reported - Vitals Vitals: Last Vital Signs Temp 36.2 C L 11/14/16 13:11 Pulse 62 11/14/16 13:11 Resp 16 11/14/16 13:11 BP 123/62 11/14/16 13:11 Pulse Ox 98 11/14/16 13:11 - Exam Constitutional: Present: Alert, Oriented x3, Cooperative, Well developed, No distress ENT Exam: Present: moist mucous membranes Neck: Present: non-tender Breasts: Present: Exam deferred Respiratory: Present: chest non-tender, lungs clear, normal breath sounds, no respiratory distress Cardiovascular/Chest: Present: normal peripheral pulses, regular rate, rhythm, no chest tenderness, no edema Abdomen: Present: Normal bowel sounds, soft, nontender, nondistended, no rebound tenderness /Rectal: Present: Exam deferred Extremity: Present: other - limited range of motion right knee Post-op knee replacement Skin Exam: Present: normal color, warm/dry, no cyanosis Neurologic: Present: oriented x 3 Appearance: Present: appropriate appearance Eye contact: Present: cooperative, good eye contact Thoughts: Present: normal thought pattern Cauti Physician Documentation - Urinary Catheter Management Urethral (Ayala) Date of Insertion: 11/14/16 Time of Insertion: 08:15 Assessment/Plan Plan Narrative: POD#0 Right knee arthroplasty secondary to DJD Ortho following SCIP completed PT/OT evaluation and treatment IV/Oral pain medication Ice pack to affected area SNF placement upon discharge Minimal blood loss post-op monitor CBC in morning. Diabetes Accu-checkAC+HS and low dose SSI Consistent carb diet Hypertension- stable Continue to monitor vital signs Resume home dose of medications Code status: Full VTE ppx : Lovenox and ambulate Anticipate discharge 1-3 days and follow up with ortho Time 20 minutes - Problems/Diagnosis (1) S/P total knee arthroplasty Problem: Acute Qualifiers: Laterality: right Qualified Code(s): Z96.651 - Presence of right artificial knee joint (2) Hyperglycemia Problem: Chronic (3) Hypertension Problem: Chronic Qualifiers: Hypertension type: essential hypertension Qualified Code(s): I10 - Essential (primary) hypertension
[2016-11-14] MEDS: LISINOPRIL 20 MG TABLET PO SCH (20:18)
[2016-11-14] MEDS: MORPHINE SULFATE 15 MG TABLET.SA PO SCH (20:18)
[2016-11-14] MEDS: SENNOSIDES/DOCUSATE SODIUM 1 TAB TABLET PO SCH (20:18)
[2016-11-15] MEDS: diphenhydrAMINE HCL 50 MG/ML VIAL IV PRN ×3 (04:32→13:28)
[2016-11-15] MEDS: KETOROLAC TROMETHAMINE 15 MG/ML VIAL IV SCH ×4 (04:33→22:31)
[2016-11-15 05:46] LABS: Hematocrit 31.2 % (37.0-47.0); Hemoglobin 10.2 gm/dL (12.5-16.0); Mean Cell Volume 92.9 fl (78-100); Mean Corpuscular Hemoglobin 30.4 pg (27-31); Mean Corpuscular Hgb Conc 32.7 g/dl (32-36); Mean Platelet Volume 9.1 fl (6.0-9.5); Platelet Count 244 K/mm3 (150-450); Red Blood Count 3.36 M/mm3 (4.2-5.4); White Blood Count 4.8 K/mm3 (4.0-10.5)
[2016-11-15 06:17] LABS: Anion Gap 12.7 mmol/L (6.8-13.8); BUN/Creatinine Ratio 18.4 (9.0-21.6); Calcium * 8.8 mg/dL (7.9-10.9); Estimated Creat Clear 27.1; Potassium 4.7 mmol/L (3.4-4.6)
[2016-11-15] MEDS: PANTOPRAZOLE SODIUM 20 MG TABLET.DR PO SCH (06:45)
--- NOTE | 2016-11-15 07:26 | PN ---
Subjective - Date and Time Seen Date: 11/15/16 Time: 07:20 Subjective Narrative: Patient seen and examined at bedside. No acute issues overnight. Patient states she is doing well but is weak. Pain well controlled and patient denies any pain whatsoever at the time of my exam. Ayala cath removed approximately 30 minutes prior to my exam. Patient has not voided on her own yet. Patient has not had a BM since surgery but denies feeling bloated or constipated. Objective - Review of Systems Generalized/Overall Review: Reports: Weakness EENTM: Reports: No Symptoms Reported Respiratory: Reports: No Symptoms Reported Cardiac: Reports: No Symptoms Reported Abdominal: Reports: No Symptoms Reported Genitourinary Symptoms: Reports: No Symptoms Reported Musculoskeletal Complaints: Reports: Joint Pain - Right knee pain s/p TKA Neurological: Reports: No Symptoms Reported Skin: Reports: No Symptoms Reported Endocrine: Reports: No Symptoms Reported Misc: All systems neg except as marked - Vitals Vitals: Last Vital Signs Temp 36.4 C L 11/15/16 06:27 Pulse 66 11/15/16 06:27 Resp 18 11/15/16 06:27 BP 140/76 11/15/16 06:27 Pulse Ox 100 11/15/16 06:27 - Abnormal Lab Findings Abnormal Lab Findings: Abnormal Lab Results 11/15/16 11/15/16 Range/Units 05:40 05:40 RBC 3.36 L (4.2-5.4) M/mm3 Hgb 10.2 L (12.5-16.0) gm/dL Hct 31.2 L (37.0-47.0) % Potassium 4.7 H D (3.4-4.6) mmol/L Est GFR (Non-Af Amer) 44 L (60-130) mL/min Random Glucose 143 H (70-110) mg/dL - Exam Constitutional: Present: Alert, Oriented x3, Cooperative, Well developed, Well nourished, No distress ENT Exam: Present: hearing grossly normal, moist mucous membranes Respiratory: Present: lungs clear, normal breath sounds, no respiratory distress , no accessory muscle use Cardiovascular/Chest: Present: regular rate, rhythm, edema - right>left Abdomen: Present: soft, nontender, nondistended, hypoactive Extremity: Present: other - s/p right TKA Skin Exam: Present: warm/dry, no cyanosis Neurologic: Present: no motor/sensory deficits, alert, normal mood/affect, oriented x 3 Appearance: Present: appropriate appearance, appropriate insight, neat, no memory impairment Eye contact: Present: cooperative, good eye contact, normal speech Thoughts: Present: normal thought pattern, no apparent hallucination Cauti Physician Documentation - Urinary Catheter Management Urethral (Ayala) Urethral Indwelling: Yes Reason for Continuing Indwelling Catheter: Surgical Procedure Date of Insertion: 11/14/16 Time of Insertion: 08:15 Assessment/Plan Plan Narrative: IMPRESSION & PLAN: Right knee DJD -S/P right total knee arthroplasty on 11.14.[address] Li -Pain well controlled. Continue current pain medications as needed. -PT/OT evaluation and treatment -Patient would like benefit from discharge to SNF vs. home with [facility] -Postop wound care/dressings per ortho -Ayala catheter removed this AM. Monitor to be sure patient is able to urinate on her own. -Encourage IS q1h while awake Acute Post-Operative Blood Loss Anemia -Hemoglobin this AM 10.2 (down from 12.2 on 11.01.2016) -No signs of active bleeding -Continue to monitor and recheck hemogram in the morning to monitor for stability Hyperkalemia -Potassium minimally elevated at 4.7 this AM -No treatment necessary at this time. Plan to recheck BMP in AM. STABLE CHRONIC MEDICAL CONDITIONS Type 2 DM: Most recent A1c on 06.06.2016 was 7.5%. Continue home Metformin. While inpatient, monitor BG AC, HS and PRN and use medium dose correction insulin TID with meals. Benign Essential Hypertension: Continue home medication Lisinopril. Goal BP < 140/90mmHg. GERD: Continue home PPI Allergic Rhinitis: Continue home medications Zyrtec and Flonase as needed Anxiety: Continue home alprazolam as needed VTE ppx : Lovenox, SCDs Code Status: Full Code Disposition: Continue to work with PT/OT. Patient would like benefit from discharge to SNF vs. home with [facility]. Likely discharge within the next 1-2 days. - Problems/Diagnosis (1) S/P total knee arthroplasty Problem: Acute Qualifiers: Laterality: right Qualified Code(s): Z96.651 - Presence of right artificial knee joint (2) Right knee DJD Problem: Chronic Qualifiers: Osteoarthritis type: primary Qualified Code(s): M17.11 - Unilateral primary osteoarthritis, right knee (3) Postoperative anemia due to acute blood loss Problem: Acute (4) Hyperkalemia Problem: Acute (5) Benign essential hypertension Problem: Chronic (6) Type 2 diabetes mellitus Problem: Chronic Qualifiers: Diabetes mellitus complication status: without complication Diabetes mellitus intermission coordinator insulin use: without intermission coordinator use Qualified Code(s): E11.9 - Type 2 diabetes mellitus without complications (7) Anxiety Problem: Chronic (8) Allergic rhinitis Problem: Chronic (9) GERD (gastroesophageal reflux disease) Problem: Chronic
--- NOTE | 2016-11-15 07:58 | PN ---
Subjective - Date and Time Seen Date: 11/15/16 Time: 07:55 Subjective Narrative: Subjective: Reports no concerns. She does have some itching. Was able to get to a chair with therapy. Pain is well-controlled. Voiding without any complications. Tolerating by mouth intake. Denies any nausea or vomiting. Denies calf pain. Slept well. Physical exam: Alert and oriented to person, place and time Right lower Extremity: Palpable dorsalis pedis pulse. Sensation grossly intact to light touch. Dressings dry . Able to flex and extend ankle and toes. No excessive drainage. Calf and thigh are soft and nontender. Assessment: Postop day 1 status post right total knee arthroplasty. Plan: Continue with physical and occupational therapy weightbearing as tolerated. Continue with anticoagulation. 24 hours postoperative prophylactic antibiotics. Pain control with goal to rely on oral medications. Continue bowel regimen. Will need 6 weeks with walker or assitive device to protect joint while ambulating during the recovery process. Discharge planning. Discontinue drain and Ayala catheter. Repeat labs in a.m. Objective - Vitals Vitals: Last Vital Signs Temp 36.4 C L 11/15/16 06:27 Pulse 66 11/15/16 06:27 Resp 18 11/15/16 06:27 BP 140/76 11/15/16 06:27 Pulse Ox 100 11/15/16 06:27 - Abnormal Lab Findings Abnormal Lab Findings: Abnormal Lab Results 11/15/16 11/15/16 Range/Units 05:40 05:40 RBC 3.36 L (4.2-5.4) M/mm3 Hgb 10.2 L (12.5-16.0) gm/dL Hct 31.2 L (37.0-47.0) % Potassium 4.7 H D (3.4-4.6) mmol/L Est GFR (Non-Af Amer) 44 L (60-130) mL/min Random Glucose 143 H (70-110) mg/dL Cauti Physician Documentation - Urinary Catheter Management Urethral (Ayala) Urethral Indwelling: Yes Reason for Continuing Indwelling Catheter: Decision made to DC Date of Insertion: 11/14/16 Time of Insertion: 08:15 Assessment/Plan - Problems/Diagnosis (1) Acute blood loss anemia Problem: Acute (2) Hyperkalemia Problem: Acute (3) S/P total knee arthroplasty Problem: Acute Qualifiers: Laterality: right Qualified Code(s): Z96.651 - Presence of right artificial knee joint (4) Allergic rhinitis Problem: Chronic (5) Anxiety Problem: Chronic (6) Benign essential hypertension Problem: Chronic (7) GERD (gastroesophageal reflux disease) Problem: Chronic (8) Hypertension Problem: Chronic Qualifiers: Hypertension type: essential hypertension Qualified Code(s): I10 - Essential (primary) hypertension (9) Type 2 diabetes mellitus Problem: Chronic Qualifiers: Diabetes mellitus complication status: without complication Diabetes mellitus termite control representative insulin use: without termite control representative use Qualified Code(s): E11.9 - Type 2 diabetes mellitus without complications
[2016-11-15] MEDS: MULTIVITAMIN/IRON/FOLIC ACID 1 TAB TABLET PO SCH (09:01)
[2016-11-15] MEDS: LORATADINE 10 MG TABLET PO SCH (09:01)
[2016-11-15] MEDS: CALCIUM CARBONATE/VITAMIN D3 1 TAB TABLET PO SCH (09:01)
[2016-11-15] MEDS: ENOXAPARIN SODIUM 40 MG/0.4 ML SYRG SC SCH (09:01)
[2016-11-15] MEDS: LISINOPRIL 20 MG TABLET PO SCH ×2 (09:02→20:00)
[2016-11-15] MEDS: MORPHINE SULFATE 15 MG TABLET.SA PO SCH ×2 (09:02→20:00)
[2016-11-15] MEDS: FLUTICASONE PROPIONATE 120 SPRAY INHALER NS SCH (09:02)
[2016-11-15] MEDS: oxyCODONE HCL/ACETAMINOPHEN 1 TAB TABLET PO PRN ×2 (09:59→11:13)
[2016-11-15] MEDS: SENNOSIDES/DOCUSATE SODIUM 1 TAB TABLET PO SCH (20:00)
[2016-11-16] MEDS: KETOROLAC TROMETHAMINE 15 MG/ML VIAL IV SCH (04:51)
[2016-11-16 05:25] LABS: Hematocrit 31.6 % (37.0-47.0); Hemoglobin 10.4 gm/dL (12.5-16.0); Mean Cell Volume 91.9 fl (78-100); Mean Corpuscular Hemoglobin 30.2 pg (27-31); Mean Corpuscular Hgb Conc 32.9 g/dl (32-36); Mean Platelet Volume 9.2 fl (6.0-9.5); Platelet Count 245 K/mm3 (150-450); Red Blood Count 3.44 M/mm3 (4.2-5.4); Red Cell Distribution Width 12.8 % (11.5-14.0); White Blood Count 7.6 K/mm3 (4.0-10.5)
[2016-11-16 05:39] LABS: Anion Gap 13.5 mmol/L (6.8-13.8); BUN/Creatinine Ratio 17.2 (9.0-21.6); Estimated Creat Clear 29.2; Potassium 4.5 mmol/L (3.4-4.6)
[2016-11-16] MEDS: PANTOPRAZOLE SODIUM 20 MG TABLET.DR PO SCH (06:17)
[2016-11-16] MEDS: CALCIUM CARBONATE/VITAMIN D3 1 TAB TABLET PO SCH (08:35)
[2016-11-16] MEDS: ENOXAPARIN SODIUM 40 MG/0.4 ML SYRG SC SCH (08:35)
[2016-11-16] MEDS: LORATADINE 10 MG TABLET PO SCH (08:36)
[2016-11-16] MEDS: MULTIVITAMIN/IRON/FOLIC ACID 1 TAB TABLET PO SCH (08:36)
[2016-11-16] MEDS: oxyCODONE HCL/ACETAMINOPHEN 1 TAB TABLET PO PRN ×3 (08:36→22:13)
[2016-11-16] MEDS: FLUTICASONE PROPIONATE 120 SPRAY INHALER NS SCH (08:36)
[2016-11-16] MEDS: LISINOPRIL 20 MG TABLET PO SCH ×2 (08:36→20:06)
[2016-11-16] MEDS: MORPHINE SULFATE 15 MG TABLET.SA PO SCH ×2 (08:40→20:06)
--- NOTE | 2016-11-16 08:50 | PN ---
Subjective - Date and Time Seen Date: 11/16/16 Time: 08:48 Subjective Narrative: Patient seen and examined at bedside this AM. No acute issues overnight. Pain well controlled. Ayala cath removed yesterday and patient is urinating on her own without difficulty. Patient has not had a BM since surgery but denies feeling bloated or constipated. Objective - Review of Systems Generalized/Overall Review: Reports: Weakness, Fatigue EENTM: Reports: No Symptoms Reported Respiratory: Reports: No Symptoms Reported Cardiac: Reports: No Symptoms Reported Abdominal: Reports: No Symptoms Reported Genitourinary Symptoms: Reports: No Symptoms Reported Musculoskeletal Complaints: Reports: Other - Right knee pain s/p right TKA Neurological: Reports: No Symptoms Reported Skin: Reports: No Symptoms Reported Endocrine: Reports: No Symptoms Reported Misc: All systems neg except as marked - Vitals Vitals: Last Vital Signs Temp 36.7 C 11/16/16 06:38 Pulse 81 11/16/16 08:36 Resp 20 11/16/16 06:38 BP 138/63 11/16/16 08:36 Pulse Ox 98 11/16/16 06:38 - Abnormal Lab Findings Abnormal Lab Findings: Abnormal Lab Results 11/16/16 11/16/16 Range/Units 05:20 05:20 RBC 3.44 L (4.2-5.4) M/mm3 Hgb 10.4 L (12.5-16.0) gm/dL Hct 31.6 L (37.0-47.0) % Est GFR (Non-Af Amer) 48 L (60-130) mL/min Random Glucose 147 H (70-110) mg/dL - Exam Constitutional: Present: Alert, Oriented x3, Cooperative, Well developed, Well nourished, No distress ENT Exam: Present: hearing grossly normal, moist mucous membranes Respiratory: Present: lungs clear, normal breath sounds, no respiratory distress , no accessory muscle use Cardiovascular/Chest: Present: regular rate, rhythm, no murmur, edema - Trace edema in bilateral lower extremities right>left Abdomen: Present: soft, nontender, nondistended, hypoactive Extremity: Present: lower extremity edema - Trace edema in bilateral lower extremities right>left, other - s/p right TKA Skin Exam: Present: warm/dry, no cyanosis Neurologic: Present: alert, normal mood/affect, oriented x 3 Appearance: Present: appropriate appearance, appropriate insight, neat, no memory impairment Eye contact: Present: cooperative, good eye contact, normal speech Thoughts: Present: normal thought pattern, no apparent hallucination Cauti Physician Documentation - Urinary Catheter Management Urethral (Aylaa) Urethral Indwelling: Yes Date of Insertion: 11/14/16 Time of Insertion: 08:15 Date of Removal: 11/15/16 Time of Removal: 06:20 Assessment/Plan Plan Narrative: IMPRESSION & PLAN: Right knee DJD -S/P right total knee arthroplasty on 11.14.[address] Li -Pain well controlled. Continue current pain medications as needed. -PT/OT evaluation and treatment -Plan is for patient to discharge home with [facility] (patient lives with her daughter May) -Postop wound care/dressings per ortho -Encourage IS q1h while awake Acute Post-Operative Blood Loss Anemia -Hemoglobin stable. No signs of active bleeding Hyperkalemia - Resolved STABLE CHRONIC MEDICAL CONDITIONS Type 2 DM: Most recent A1c on 06.06.2016 was 7.5%. Continue home Metformin. While inpatient, monitor BG AC, HS and PRN and use medium dose correction insulin TID with meals. Benign Essential Hypertension: Continue home medication Lisinopril. Goal BP < 140/90mmHg. GERD: Continue home PPI Allergic Rhinitis: Continue home medications Zyrtec and Flonase as needed Anxiety: Continue home alprazolam as needed VTE ppx : Lovenox, SCDs Code Status: Full Code Disposition: Continue to work with PT/OT. Okay to discharge home with [facility] from my standpoint. - Problems/Diagnosis (1) S/P total knee arthroplasty Problem: Acute Qualifiers: Laterality: right Qualified Code(s): Z96.651 - Presence of right artificial knee joint (2) Right knee DJD Problem: Chronic Qualifiers: Osteoarthritis type: primary Qualified Code(s): M17.11 - Unilateral primary osteoarthritis, right knee (3) Postoperative anemia due to acute blood loss Problem: Acute (4) Hyperkalemia Problem: Acute (5) Benign essential hypertension Problem: Chronic (6) Type 2 diabetes mellitus Problem: Chronic Qualifiers: Diabetes mellitus complication status: without complication Diabetes mellitus senior care insulin use: without intermediate designer use Qualified Code(s): E11.9 - Type 2 diabetes mellitus without complications (7) Anxiety Problem: Chronic (8) Allergic rhinitis Problem: Chronic (9) GERD (gastroesophageal reflux disease) Problem: Chronic
--- NOTE | 2016-11-16 09:18 | PN ---
Subjective - Date and Time Seen Date: 11/16/16 Time: 09:15 Subjective Narrative: Patient reports her pain is controlled. No nausea. She has not done stairs yet. PT reports some buckling of leg with ambulation but patient reports this is getting better. No complaints. Objective Objective Narrative: Bandages C/D/I. N/V intact RLE. Calf supple. 5/5 PF/DF ankle. - Vitals Vitals: Last Vital Signs Temp 36.7 C 11/16/16 06:38 Pulse 81 11/16/16 08:36 Resp 20 11/16/16 06:38 BP 138/63 11/16/16 08:36 Pulse Ox 98 11/16/16 06:38 - Abnormal Lab Findings Abnormal Lab Findings: Abnormal Lab Results 11/16/16 11/16/16 Range/Units 05:20 05:20 RBC 3.44 L (4.2-5.4) M/mm3 Hgb 10.4 L (12.5-16.0) gm/dL Hct 31.6 L (37.0-47.0) % Est GFR (Non-Af Amer) 48 L (60-130) mL/min Random Glucose 147 H (70-110) mg/dL - Exam Constitutional: Present: Alert, Oriented x3, Cooperative, No distress Cauti Physician Documentation - Urinary Catheter Management Urethral (Ayala) Urethral Indwelling: Yes Date of Insertion: 11/14/16 Time of Insertion: 08:15 Date of Removal: 11/15/16 Time of Removal: 06:20 Assessment/Plan - Problems/Diagnosis (1) Postoperative anemia due to acute blood loss Problem: Acute Narrative: Stable, asymptomatic. (2) S/P total knee arthroplasty Problem: Acute Qualifiers: Laterality: right Qualified Code(s): Z96.651 - Presence of right artificial knee joint Narrative: PT-work on stairs, anticoagulation, pain control, planning discharge tomorrow, patient will need a wheeled walker for 6-12 weeks post op. (3) Anxiety Problem: Chronic (4) Benign essential hypertension Problem: Chronic (5) GERD (gastroesophageal reflux disease) Problem: Chronic
[2016-11-16] MEDS: diphenhydrAMINE HCL 50 MG/ML VIAL IV PRN ×2 (12:00→19:47)
[2016-11-16] MEDS: INSULIN LISPRO 100 UNITS/ML VIAL SC SCH ×2 (12:04→17:30)
[2016-11-16] MEDS: SENNOSIDES/DOCUSATE SODIUM 1 TAB TABLET PO SCH (20:06)
[2016-11-17] MEDS: oxyCODONE HCL/ACETAMINOPHEN 1 TAB TABLET PO PRN ×2 (05:50→10:45)
[2016-11-17] MEDS: INSULIN LISPRO 100 UNITS/ML VIAL SC SCH ×2 (06:30→11:52)
[2016-11-17] MEDS: PANTOPRAZOLE SODIUM 20 MG TABLET.DR PO SCH (06:31)
[2016-11-17 07:17] VITALS: BP 134/65
--- NOTE | 2016-11-17 07:58 | DS ---
(1) Acute blood loss anemia Problem: Acute (2) Hyperkalemia Problem: Acute (3) S/P total knee arthroplasty Problem: Acute Qualifiers: Laterality: right Qualified Code(s): Z96.651 - Presence of right artificial knee joint (4) Allergic rhinitis Problem: Chronic (5) Anxiety Problem: Chronic (6) Benign essential hypertension Problem: Chronic (7) GERD (gastroesophageal reflux disease) Problem: Chronic (8) Hypertension Problem: Chronic Qualifiers: Hypertension type: essential hypertension Qualified Code(s): I10 - Essential (primary) hypertension (9) Type 2 diabetes mellitus Problem: Chronic Qualifiers: Diabetes mellitus complication status: without complication Diabetes mellitus intermediate insulin use: without exterminator termite use Qualified Code(s): E11.9 - Type 2 diabetes mellitus without complications Description of Stay: Mrs. Johnson was admitted to the floor after undergoing right total knee arthroplasty. Tolerated this well. Was admitted to the floor postoperatively for 24 hours of IV antibiotics, pain control, medical comanagement, and occupational and physical therapy. OT and PT were consulted to assist with activities of daily living and ambulation. Was made weightbearing as tolerated with range of motion as tolerated. Pain was initially controlled with IV regimen. This was transitioned to oral once tolerating a by mouth intake. Was resumed on home diet and medications. Had a Ayala catheter inserted and the operating room which was discontinued on postoperative day 1. A drain was placed intraoperatively into the knee which was discontinued on postoperative day 1. Lovenox SCD and CORKY hose were utilized for DVT prophylaxis. Vital signs remained stable to the hospital course. Serial labs were obtained which showed a final hemoglobin of 10.4 grams. BMP was reviewed and was stable. Physical examination throughout the hospital course showed an extremity that had sensation that was intact to light touch, palpable pulses, a benign wound, motor intact to the toes, ankle, and knee. Knee range of motion was approximately 10 degrees to 70 degrees. Once an oral pain regimen was tolerated and physical therapy goals were met, it was felt that they were stable for discharge to home. Instructions: Continue with weightbearing as tolerated and range of motion as tolerated. Okay to shower as long as there is no drainage from the wound. The dressing can get wet. If there is any drainage from the wound she is instructed to cover with dry gauze and tape and keep it dry. Change every 2-3 days as needed. If there is any drainage from the wound she should cover wound while showering. Continue with physical therapy. Resume home diet. Report any fever over 101.5 Fahrenheit, uncontrolled pain, increased drainage, foul odor of drainage, new or increased calf pain or shortness of breath, or any other significant complaints. A 325mg dialy aspirin will be started after finishing anticoagulation if not allergic. Continue with CORKY hose on the operative extremity until instructed otherwise. No driving until instructed otherwise. Follow up in approximately 10-14 days. Procedures Performed: see notes below List Procedures: Right total knee arthroplasty Discharge Disposition: Home self care Disposition: Home self-care Condition: Good Discharge Activity: Activity as tolerated, Weight bearing Discharge Diet: Consistent carbs Longterm Therapy: Physicial Therapy Referrals: Radha Holland DO [Primary Care Provider] - Additional Patient Instructions (free text): Follow up with Dr. Li 11/29 at 10:00. Follow up with Dr Holland on 11/29 at [facility] new at discharge, please fax discharge information and call report. Prescriptions (Any new or edited meds): Enoxaparin Sodium [Lovenox] 40 mg SC Q24H #7 disp.syrin Morphine Sulfate [Ms Contin] 15 mg PO Q12H #10 tablet.sa oxyCODONE HCL/ACETAMINOPHEN [Percocet 5 MG/325 MG] 2 tab PO Q4H PRN #90 tablet PRN Reason: Moderate Pain Complete Home Medications List: Complete Home Medication List: Fluticasone Propionate [Flonase] 1 spray NS DAILY 08/26/16 Lisinopril [Zestril] 20 mg PO BID 08/26/16 Omeprazole 20 mg PO DAILY 08/26/16 metFORMIN HCL [Metformin HCl ER] 500 mg PO BID 08/26/16 Calcium Carbonate/Vitamin D3 [Oyster Shell Calcium-Vit D Tab] 1 each PO DAILY Cetirizine HCl [Zyrtec] 10 mg PO DAILY 11/11/16 Multivit-Min/Iron/Folic/Lutein [Centrum Silver Women Tablet] 1 each PO DAILY Naproxen Sodium [Aleve] 220 mg PO HS 11/11/16 Enoxaparin Sodium [Lovenox] 40 mg SC Q24H #7 disp.syrin 11/17/16 Morphine Sulfate [Ms Contin] 15 mg PO Q12H #10 tablet.sa 11/17/16 Sennosides/Docusate Sodium [Senokot-S] 2 tab PO HS tablet 11/17/16 oxyCODONE HCL/ACETAMINOPHEN [Percocet 5 MG/325 MG] 2 tab PO Q4H PRN #90 tablet 11/17/16
[2016-11-17] MEDS: MORPHINE SULFATE 15 MG TABLET.SA PO SCH (08:35)
[2016-11-17] MEDS: LORATADINE 10 MG TABLET PO SCH (08:36)
[2016-11-17] MEDS: LISINOPRIL 20 MG TABLET PO SCH (08:36)
[2016-11-17] MEDS: CALCIUM CARBONATE/VITAMIN D3 1 TAB TABLET PO SCH (08:36)
[2016-11-17] MEDS: MULTIVITAMIN/IRON/FOLIC ACID 1 TAB TABLET PO SCH (08:36)
[2016-11-17] MEDS: FLUTICASONE PROPIONATE 120 SPRAY INHALER NS SCH (08:36)
[2016-11-17] MEDS: ENOXAPARIN SODIUM 40 MG/0.4 ML SYRG SC SCH (08:41)
--- NOTE | 2016-11-17 12:16 | PN ---
Subjective - Date and Time Seen Date: 11/17/16 Time: 07:15 Subjective Narrative: Patient seen and examined at bedside this AM. No acute issues overnight. Pain well controlled. Planning to be discharged later today. Objective - Review of Systems Generalized/Overall Review: Reports: Weakness, Fatigue EENTM: Reports: No Symptoms Reported Respiratory: Reports: No Symptoms Reported Cardiac: Reports: No Symptoms Reported Abdominal: Reports: No Symptoms Reported Genitourinary Symptoms: Reports: No Symptoms Reported Musculoskeletal Complaints: Reports: Other - s/p right TKA but patient denies any pain at the time of my exam this AM Neurological: Reports: No Symptoms Reported Skin: Reports: Dryness Endocrine: Reports: No Symptoms Reported Misc: All systems neg except as marked - Vitals Vitals: Last Vital Signs Temp 36.9 C 11/17/16 07:16 Pulse 85 11/17/16 08:36 Resp 18 11/17/16 07:16 BP 134/65 11/17/16 08:36 Pulse Ox 96 11/17/16 07:16 - Exam Constitutional: Present: Alert, Oriented x3, Cooperative, Well developed, Well nourished, No distress ENT Exam: Present: hearing grossly normal, moist mucous membranes Respiratory: Present: lungs clear, normal breath sounds, no respiratory distress , no accessory muscle use Cardiovascular/Chest: Present: regular rate, rhythm, no murmur, edema - Trace edema in bilateral lower extremities right>left Abdomen: Present: soft, nontender, nondistended, hypoactive Extremity: Present: lower extremity edema - Trace edema in bilateral lower extremities right>left, other - s/p right TKA Skin Exam: Present: warm/dry, no cyanosis Neurologic: Present: alert, normal mood/affect, oriented x 3 Appearance: Present: appropriate appearance, appropriate insight, neat, no memory impairment Eye contact: Present: cooperative, good eye contact Thoughts: Present: normal thought pattern, no apparent hallucination Cauti Physician Documentation - Urinary Catheter Management Urethral (Ayala) Urethral Indwelling: Yes Date of Insertion: 11/14/16 Time of Insertion: 08:15 Date of Removal: 11/15/16 Time of Removal: 06:20 Assessment/Plan Plan Narrative: IMPRESSION & PLAN: Right knee DJD -S/P right total knee arthroplasty on 11.14.[address] Li -Pain well controlled. Continue current pain medications as needed. -PT/OT evaluation and treatment -Plan is for patient to discharge home with [facility] (patient lives with her daughter May) -Postop wound care/dressings per ortho -Encourage IS q1h while awake Acute Post-Operative Blood Loss Anemia -Hemoglobin stable. No signs of active bleeding Hyperkalemia - Resolved STABLE CHRONIC MEDICAL CONDITIONS Type 2 DM: Most recent A1c on 06.06.2016 was 7.5%. Continue home Metformin. While inpatient, monitor BG AC, HS and PRN and use medium dose correction insulin TID with meals. Benign Essential Hypertension: Continue home medication Lisinopril. Goal BP < 140/90mmHg. GERD: Continue home PPI Allergic Rhinitis: Continue home medications Zyrtec and Flonase as needed Anxiety: Continue home alprazolam as needed VTE ppx : Lovenox, SCDs Code Status: Full Code Disposition: Continue to work with PT/OT. Okay to discharge home with [facility] from my standpoint. - Problems/Diagnosis (1) S/P total knee arthroplasty Problem: Acute Qualifiers: Laterality: right Qualified Code(s): Z96.651 - Presence of right artificial knee joint (2) Right knee DJD Problem: Chronic Qualifiers: Osteoarthritis type: primary Qualified Code(s): M17.11 - Unilateral primary osteoarthritis, right knee (3) Postoperative anemia due to acute blood loss Problem: Acute (4) Hyperkalemia Problem: Acute (5) Benign essential hypertension Problem: Chronic (6) Type 2 diabetes mellitus Problem: Chronic Qualifiers: Diabetes mellitus complication status: without complication Diabetes mellitus intermediate manager insulin use: without intermediate manager use Qualified Code(s): E11.9 - Type 2 diabetes mellitus without complications (7) Anxiety Problem: Chronic (8) Allergic rhinitis Problem: Chronic (9) GERD (gastroesophageal reflux disease) Problem: Chronic
== END 2016-11-17 13:00 | disposition home health service (06) | DRG 470 ==
LOC: MS 05:43
PROVIDERS: ADMIT Orthopaedic Surgery; ATTEND Orthopaedic Surgery
PROC: 0SRC0J9 Replacement of Right Knee Joint with Synthetic Substitute, Cemented, Open Approach (ICD-10-PCS; principal; 2016-11-14 08:00)
DX: M17.11 Unilateral primary osteoarthritis, right knee (principal); D62 Acute posthemorrhagic anemia; I10 Essential (primary) hypertension; E11.9 Type 2 diabetes mellitus without complications; E78.5 Hyperlipidemia, unspecified; Z79.82 Long term (current) use of aspirin